=== PATIENT | female | born 1995 | race Two or more races ===

== ENCOUNTER 2023-02-23 02:16 | Emergency (ER) | payer MEDICAID, OTHER ==
[~2023-02-23] VITALS: Ht 154.9 cm; Wt 86.4 kg
[2023-02-23 02:29] VITALS: BP 153/75; PULSE 117; RESP 18; O2SAT 96
== END 2023-02-23 03:57 | disposition left against medical advice (07) ==
LOC: ER 02:16
DX: R50.9 Fever, unspecified (principal); Z53.21 Procedure and treatment not carried out due to patient leaving prior to being seen by health care provider